=== PATIENT | female | born 1960 | race Caucasian/White ===

== ENCOUNTER 2018-08-03 07:45 | Day surgery (SDC) | payer OTHER ==
[2018-08-03] MEDS ORDERED: FENTAnyl 50 MCG/ML VIAL (10:04)
[2018-08-03] MEDS ORDERED: MIDAZOLAM 1 MG/ML 2 ML INJ (10:05)
== END 2018-08-03 11:00 | disposition home or self-care (01) ==
LOC: GIL 07:45
DX: Z12.11 Encounter for screening for malignant neoplasm of colon (principal); K64.8 Other hemorrhoids
CPT/HCPCS: 45378